=== PATIENT | female | born 1980 | race Caucasian/White ===

== ENCOUNTER 2022-09-21 10:09 | Emergency (ER) | payer OTHER, SELFPAY ==
--- NOTE | ~2022-09-21 | US_ITS ---
EXAMINATION: US OBSTETRICAL ULTRASOUND CLINICAL INFORMATION: Vaginal bleeding with hCG of 10,870 COMPARISON: None available. Previous ultrasound done at another hospital on September 13, 2022 LMP: Unknown. TECHNIQUE: First trimester OB ultrasound FINDINGS: A single intrauterine gestational sac is identified. No pole or yolk sac is seen. Mean gestational sac size is 2.25 cm. This corresponds to a gestational age of 7 weeks 2 days HR: N/A CRL (crown rump length): Not seen WON (estimated date of delivery): December 08, 2022 +/- 4 days. MATERNAL ADNEXA: The right maternal ovary measures 2.6 x 1.9 x 2.0 cm. Corpus luteum is present measuring 1.6 x 1.1 x 1.5 cm in size. The left maternal ovary measures 3.5 x 2.8 x 2.4 cm. No abnormal adnexal or ovarian findings. There is no significant maternal adnexal mass. No maternal pelvic ascites. US/US OB <= 14 weeks fetus IMPRESSION: 1. Single intrauterine gestational sac with ultrasound gestational age of 7 weeks 2 days +/- 4 days. 2. Estimated date of delivery is December 08, 2022 +/- 4 days. 3. No maternal adnexal mass or pelvic ascites.
[2022-09-21 11:08] VITALS: BP 142/81; PULSE 75; RESP 18; TEMP 36.9; O2SAT 98; BMI 44.6
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
[2022-09-21 11:50] LABS: MANUAL DIFF FLAG NO
[2022-09-21 11:56] LABS: Appearance Urine Cloudy; Color Urine Yellow; Glucose Urine UA Negative (Negative); Leukocyte Esterase Urine Negative (Negative); Nitrite Urine Negative (Negative); PH 5.5 (5.0-9.0); UMIC TRIGGER UACC YES; Urine Blood Small (1+) (Negative); Urine Ketones Negative (Negative); Urine Protein Negative (Neg-Trace)
[2022-09-21 11:56] LABS: Basophils Absolute Auto 0.1 X10*3/uL (0.0-0.2); Basophils Percent Auto 0.7 % (0-2); Eosinophils Absolute Auto 0.4 X10*3/uL (0.0-0.4); Eosinophils Percent Auto 3.2 % (0-4); Hematocrit 41.9 % (37.0-47.0); Hemoglobin 14.2 g/dl (12.0-16.0); Imm Gran Abs Auto 0.07 X10*3/uL (0.00-0.03); Imm Gran Pct Auto 0.5 % (0.0-0.4); Lymphocytes Absolute Auto 2.8 X10*3/uL (1.2-4.9); Lymphocytes Percent Auto 21.7 % (20-40); Mean Corpuscular HGB Conc 33.9 g/dl (31.0-35.0); Mean Corpuscular Hemoglobin 30.7 pg (27.0-33.0); Mean Corpuscular Volume 90.7 fL (80.0-98.0); Mean Platelet Volume 10.3 fL (9.4-12.3); Monocytes Absolute Auto 0.8 X10*3/uL (0.1-1.2); Monocytes Percent Auto 6.5 % (2-11); Neutrophils Absolute Auto 8.7 x10*3/uL (2.0-8.3); Neutrophils Percent Auto 67.4 % (45-73); Platelet Count 326 X10*3/uL (160-400); Red Blood Count 4.62 X10*6/uL (4.20-5.50); Red Cell Distribution Width 13.8 % (11.0-16.0); White Blood Count 12.9 X10*3/uL (4.8-10.8)
[2022-09-21 12:01] LABS: Bacteria Urine Trace (None Seen); Hyaline Casts Urine 0-2 /LPF (0-2); WBC Urine 0-5 /HPF (0-5)
[2022-09-21 12:23] LABS: Alanine Aminotransferase 25 U/L (0-31); Alkaline Phosphatase 65 U/L (39-117); Anion Gap 13 (12-20); Aspartate Amino Transferase 17 U/L (5-31); Bilirubin Direct < 0.2 mg/dL (0.0-0.5); Bilirubin Total 0.2 mg/dL (0.0-1.0); Blood Urea Nitrogen 10 mg/dL (9-16); Calcium 9.5 mg/dL (8.4-10.2); Carbon Dioxide 26 mmol/L (22-29); Chloride 108 mmol/L (96-108); Estimated Glomerular Filt Rate > 60; Glucose Random 89 mg/dL (60-115); HCG Quantitative 10870 mIU/mL; Magnesium 1.9 mg/dL (1.6-2.6); Potassium 4.6 mmol/L (3.3-5.1); Sodium 142 mmol/L (135-145); Total Protein 6.3 g/dL (6.5-8.0)
--- OUTSIDE RECORDS SUMMARY | 2022-09-21 16:36 | XMS_ITS | Continuity of Care Document ---
Author Name Unknown Organization [facility] Address [address] [place] [address]- Care Team Providers Care Motor And Generator Assembler Name Role Phone Name Antonio REYES Primary Care Phys[id number] Date(s): 06/15/21 - 06/22/21 [facility] [address] [place] [address]- Encounter Diagnosis Right-sided chest pain(Discharge Diagnosis) - 06/15/21 Jaw pain, left sided(Discharge Diagnosis) - 06/15/21 Attending Physician: Almas REYES, Corina Referring Physician: Name Antonio REYES Allergies, Adverse Reactions, Alerts Substance Reaction Severity Status Levaquin Active Benadryl Active Medications acetaminophen 325 mg oral tablet 975 mg, By Mouth, Every 6 hours, PRN, Refills 0, Maintenance, Pain , Mild, 04/17/16 13:45:58 Start Date: 04/17/16 Status: Ordered Diflucan 150 mg oral tablet 1 tablet = 150 mg, By Mouth, Once, # 2 tablet, 0 Refills, Soft Stop, 05/22/19 11:10:00 EST, Tablet,[facility], 166, cm, 05/20/19 12:25:00 EST, Height, 108.5, kg, 05/20/19 12:25:00 EST, Dry Weight Start Date: 05/22/19 Status: Ordered Problem List Condition Effective Dates Status Health Status Inform ant Active smoker(Confirmed) Active Chronic depression(Confirmed) Active VD x 3(Confirmed) Active Hypercholesterolemia(Confirmed) Active Morbid obesity(Confirmed) Active Diagnosis Diagnosis Type Effective Dates Health Status Cl inical Service Informant Right-sided chest pain Discharge Diagnosis 06/15/21 Jaw pain, left sided Discharge Diagnosis 06/15/21 Non-Specified Vital Signs Most recent to oldest [Reference Range]: 1 Height 166 cm (06/15/21 12:51 PM) Oxygen Saturation [94-100 %] 100 % (06/15/21 12:51 PM) Pulse Rate [55-90 bpm] 67 bpm (06/15/21 12:51 PM) Blood Pressure [90-138/55-84 mm Hg] 118/ 59mm Hg (06/15/21 12:51 PM) Respiratory Rate [16-30 br/min] 18 br/mi n (06/15/21 12:51 PM) Temperature [96.8-100.4 DegF] 97.1 DegF (06/15/21 12:51 PM) Mode of Delivery (Oxygen) Room air (06/15/21 12:51 PM) Blood pressure sites Arm, left (06/15/21 12:51 PM) Social History Social History Type Response Smoking Status Never smoker; Type: Cigarettes; Tobacco use times per day: 1 pack/day; entered on: 03/14/14 Sex
--- OUTSIDE RECORDS SUMMARY | 2022-09-21 16:36 | XMS_ITS | Continuity of Care Document ---
Author Name Unknown Organization [facility] Address [address] [place] [address]- Care Team Providers Care Employment Programs Analyst Name Role Phone Name Antonio REYES Primary Care Physician Encounter [facility] [place] ACCT R [id number] Date(s): 05/20/19 - 05/30/19 [facility] [address] [place] [address]- [facility] Attending Physician: Ronny Frazier Admitting Physician: Admtr, ArMaria G Referring Physician: Admtr, Ar8 Allergies, Adverse Reactions, Alerts Substance Reaction Severity [...] 05/22/19 11:10:00 EST, Tablet,[facility] [address], 166, cm, 05/20/19 12:25:00 EST, Height, 108.5, kg, 05/20/19 12:25:00 EST, Dry Weight Start Date: 05/22/19 Status: Ordered Problem List Condition Effective Dates Status Health Status Inform ant Active smoker(Confirmed) Active Chronic depression(Confirmed) Active VD x 3(Confirmed) Active Hypercholesterolemia(Confirmed) Active Morbid obesity(Confirmed) Active Social History Social History Type Response Smoking Status Never smoker; Type: Cigarettes; Tobacco use times per day: 1 pack/day; entered on: 03/14/14 Sex
--- OUTSIDE RECORDS SUMMARY | 2022-09-21 16:36 | XMS_ITS | Continuity of Care Document ---
Author Name Unknown Organization [facility] Address [address] [place] [id number]- Care Team Providers Care Shipping Room Supervisor Name Role Phone Name Antonio REYES Primary Care Physician [phone] Encounter [facility] [place] [place] Date(s): 05/20/19 - 05/20/[address] [address]- [facility] Attending Physician: Edilson Chavez MD Allergies, Adverse Reactions, Alerts Substance Reaction Severity Status Levaquin Active Benadryl Active Medications acetaminophen 325 mg oral tablet 975 mg, By Mouth, Every 6 hours, PRN, Refills 0, Maintenance, Pain , Mild, 04/17/16 13:45:58 Start Date: 04/17/16 Status: Ordered Flagyl 500 mg oral tablet 1 tablet = 500 mg, By Mouth, 3 times a day, for 7 days, # 21 tablet, 0 Refills, Acute 05/27/19 13:07:00 EST, 05/20/19 13:07:00 EST, Tablet, [id number], 166, cm, 05/20/19 12:25:00 EST, Height, 108.5, kg, 05/20/19 12:25:00 EST, Dry Weight Start Date: 05/20/19 Stop Date: 05/27/19 Status: Ordered Problem List Condition Effective Dates Status Health Status Inform ant Active smoker(Confirmed) Active Chronic depression(Confirmed) Active VD x 3(Confirmed) Active Hypercholesterolemia(Confirmed) Active Morbid obesity(Confirmed) Active Social History Social History Type Response Smoking Status Never smoker; Type: Cigarettes; Tobacco use times per day: 1 pack/day; entered on: 03/14/14 Sex
--- OUTSIDE RECORDS SUMMARY | 2022-09-21 16:36 | XMS_ITS | Continuity of Care Document ---
Author Name Unknown Organization [facility] Address [address] [place] [address]- Care Team Providers Care Site Supervising Technical Operator Name Role Phone Name Antonio REYES Primary Care Physician En[place] [facility] [place] [id number] Date(s): 06/15/21 - 07/15/21 [facility] [address], [place] [address] Attending Physician: Ronny Frazier Admitting Physician: AdmtrRonny Referring Physician: AdmtrRonny Allergies, Adverse Reactions, Alerts Substance Reaction Severity [...] 05/22/19 11:10:00 EST, Tablet,[facility] [address], 166, cm, 05/20/19 12:25:00 EST, [...]
--- OUTSIDE RECORDS SUMMARY | 2022-09-21 16:36 | XMS_ITS | Continuity of Care Document ---
Author Name Unknown Organization [facility] Address [address] [place] [address]- Care Team Providers Care Bun Panner Name Role Phone Name Antonio REYES [id number]s): 05/20/19 - 05/27/19 [facility] [address] [place] [address]- [facility] Encounter Diagnosis Vaginal discharge(Discharge Diagnosis) - 05/20/19 Attending Physician: Scott REYES, Edilson Severino Referring Physician: Name Antonio REYES Allergies, Adverse [...] 05/22/19 11:10:00 EST, Tablet,[facility] 166, cm, 05/20/19 12:25:00 EST, Height, 108.5, kg, 05/20/19 12:25:00 EST, Dry Weight Start Date: 05/22/19 Status: Ordered Problem List Condition Effective Dates Status Health Status Inform ant Active smoker(Confirmed) Active Chronic depression(Confirmed) Active VD x 3(Confirmed) Active Hypercholesterolemia(Confirmed) Active Morbid obesity(Confirmed) Active Diagnosis Diagnosis Type Effective Dates Health Status Cl inical Service Informant Vaginal discharge Discharge Diagnosis 05/20/19 Vital Signs Most recent to oldest [Reference Range]: 1 Height 166 cm (05/20/19 12:25 PM) Weight 108.5 kg (05/20/19 12:25 PM) Oxygen Saturation [94-100 %] 97 % (05/20/19 12:25 PM) Pulse Rate [55-90 bpm] 72 bpm (05/20/19 12:25 PM) Body Mass Index [18.5-24.99] 39.37 *>HHI* (05/20/19 12:25 PM) Blood Pressure [90-138/55-84 mm Hg] 127/ 75mm Hg (05/20/19 12:25 PM) Respiratory Rate [16-30 br/min] 18 br/mi n (05/20/19 12:25 PM) Temperature [96.8-100.4 DegF] 98.6 DegF (05/20/19 12:25 PM) Mode of Delivery (Oxygen) Room air (05/20/19 12:25 PM) Blood pressure sites Arm, right (05/20/19 12:25 PM) Temperature Route Oral (05/20/19 12:25 PM) Dry Weight 108.5 kg (05/20/19 12:25 PM) Dry Weight Obtained Via Standing scale (05/20/19 12:25 PM) Social History Social History Type Response Smoking Status Never smoker; Type: Cigarettes; Tobacco use times per day: 1 pack/day; entered on: 03/14/14 Sex
== END 2022-09-21 18:20 | disposition home or self-care (01) ==
PROVIDERS: Physician Assistant; Emergency Provider Emergency Medicine; PCP Family Medicine
DX: O20.0 Threatened abortion (principal); O26.851 Spotting complicating pregnancy, first trimester; Z3A.01 Less than 8 weeks gestation of pregnancy
CPT/HCPCS: 36415; 76801; 80048; 80076; 81001; 83735; 84702; 85025; 86900; 86901; 99284

== ENCOUNTER 2022-09-23 12:07 | Outpatient (REF) | payer OTHER, SELFPAY ==
[2022-09-23 14:04] LABS: HCG Quantitative 1500 mIU/mL
== END 2022-09-23 12:08 | disposition home or self-care (01) ==
LOC: HO.10HDL 12:07
PROVIDERS: Visit Provider Emergency Medicine
DX: O20.0 Threatened abortion (principal)
CPT/HCPCS: 36415; 84702